=== PATIENT | male | born 1970 | race Caucasian/White ===

== ENCOUNTER 2021-05-22 14:45 | Outpatient (CLI) | payer BC, MEDICARE, SELFPAY ==
--- NOTE | ~2021-05-22 | XR_ITS ---
EXAMINATION: XR shoulder LT min 2V EXAM DATE: 05/22/2021 15:27 INDICATION: M25.512 - No known recent injury provided at this time. Pain of the left shoulder. TECHNIQUE: The following left shoulder projections obtained: frontal projection with internal rotatio n, frontal projection with external rotation, Grashey, and scapular Y view (4+ views). There is no p rior study for comparison. FINDINGS: No evidence of left shoulder rotator cuff calcific tendinosis. There is moderate glenohu meral joint, mild acromioclavicular joint primary osteoarthritis. There are no acute fractures or dis locations identified. There is no subcutaneous gas. The soft tissue is unremarkable. There are no radiopaque foreign bodies. IMPRESSION: Moderate left acromioclavicular, mild glenohumeral osteoarthritis. Reviewed, dictated and finalized at location A. ENT NURSE
== END 2021-05-22 14:46 | disposition home or self-care (01) ==
LOC: ANHIMG 15:05
PROVIDERS: PCP Internal Medicine; Visit Provider Physician Assistant
DX: M19.012 Primary osteoarthritis, left shoulder (principal)
CPT/HCPCS: 73030

== ENCOUNTER 2022-04-12 13:00 | Outpatient (NON) | payer BC, SELFPAY | END 2022-04-12 13:01 | disposition home or self-care (01) | PROVIDERS: PCP Internal Medicine; Visit Provider Surgery Plastic and Reconstructive Surgery | DX: D22.5 Melanocytic nevi of trunk (principal) | CPT/HCPCS: 88305 ==

== ENCOUNTER 2022-05-04 01:10 | Day surgery (SDC) | payer BC, SELFPAY ==
[2022-04-24 13:51] VITALS: BMI 32.3
--- NOTE | 2022-05-03 15:56 | WPDANESEPPF ---
Anes - Initial Pre Proc Eval Procedure: Operation Date: 05/04/22 08:30 Proposed Procedures p Screening Colonoscopy - Ryan Caceres MD Date/Time: 05/03/22 15:56 Surgeon: Ryan Caceres MD Pre Op Diagnosis: neoplasm screening Patient Data Age: 52 Gender: M Height: 1.78 m Weight: 102.3 kg Allergies Allergy/AdvReac Type Severity Reaction Status Date / Time amlodipine Allergy Intermediate legs Verified 05/04/22 07:15 swelled azithromycin Allergy Intermediate Hives Verified 05/04/22 07:15 Home Medications Medication Instructions Recorded Confirmed Type aspirin 81 mg tablet,delayed 81 mg PO DAILY 07/17/19 04/24/22 History release (Adult Low Dose Aspirin) atorvastatin 20 mg tablet 20 mg PO DAILY 07/17/19 04/24/22 History carvedilol 12.5 mg tablet 12.5 mg PO Q12H 07/17/19 04/24/22 History cholecalciferol (vitamin D3) 50 50 mcg PO DAILY 07/17/19 04/24/22 History mcg (2,000 unit) capsule mycophenolate sodium 360 mg 360 mg PO BID 07/17/19 04/24/22 History tablet,delayed release (Myfortic) prednisone 5 mg tablet 5 mg PO DAILY 07/17/19 04/24/22 History sildenafil 100 mg tablet 100 mg PO DAILY PRN sexual 03/31/21 04/24/22 Rx activity #24 tabs metformin 500 mg tablet 500 mg PO BID 12/04/21 04/24/22 History lisinopril 5 mg tablet 5 mg PO DAILY 02/05/22 04/24/22 History tacrolimus 1 mg tablet,extended 2 mg PO DAILY 02/05/22 04/24/22 History release 24 hr (Envarsus XR) Patient hx anesthesia problems: none Family hx anesthesia problems: none Results Review: All pre-operative results and documents have been reviewed as part of the pre-operative evaluation. [facility] Past Medical History Medical History (Updated 05/04/22 @ 08:08 by Prashant Medina DO) Erectile dysfunction Essential (primary) hypertension Gout, unspecified Hyperglycemia Hyperlipidemia Obesity (BMI 30.0-34.9) Surgical History Surgical History S/P kidney transplant Family History Family History Sibling Patient's sister is in good health Patient's brother is in good health Mother Patient's mother is Father Patient's father is Family history of heart disease in male family member before age 55 Social History Social History Years smoked: 30 Smoking status: Former smoker Tobacco type: cigarettes Second hand tobacco smoke exposure: No Alcohol intake: current Drinks per week: 4 Alcohol use details: social Substance use type: does not use Living arrangements: with family Spiritual care concerns: No Anes - Eval Final PreProcedure Day of Procedure 05/03/22 15:56 Patient weight: obese Heart: regular rate and rhythm Lungs: clear to auscultation Airway: Mallampati scale class II Neurological: alert and oriented Last oral intake: >/= 8 hours ASA classification: III Emergent: no Anesthetic plan: proceed Anesthesia type and monitoring: general GIVS and standard monitoring Results Review: All pre-operative results and documents have been reviewed as part of the pre-operative evaluation. Informed Consent: The patient's anesthetic plan and its attendant risks and benefits were discussed with the patient/family/POA. Questions were solicited and answers provided to the satisfaction of the patient/family/POA.
[2022-05-04 07:16] VITALS: BP 128/78; PULSE 62; RESP 18; TEMP 36.3; O2SAT 100
[2022-05-04] MEDS: LACTATED RINGERS 1,000 ML 150 ML IV CONT (07:32)
[2022-05-04 07:33] LABS: Glucose Point of Care 127 mg/dl (65-105)
--- NOTE | 2022-05-04 08:12 | PM.HPGS ---
History of Present Illness History of Present Illness Consent: Risks, benefits, and alternatives have been discussed and questions answered. Patient agrees to proceed with procedure. Chief complaint: neoplasm screening Narrative: Ravindra Diego is a 52 year old male here for first screening colonoscopy Review of Systems Constitutional: Constitutional: Denies headache(s) and Denies weakness Eyes: Eyes: Denies blurry vision ENT: Reports Normal hearing present, Denies headache(s) and Denies neck pain Cardiovascular: Cardiovascular: Denies chest pain and Denies dyspnea Respiratory: Respiratory: Denies dyspnea Gastrointestinal: Gastrointestinal: Reports no additional gastrointestinal complaints Genitourinary: Genitourinary: Denies dysuria Musculoskeletal: Musculoskeletal: Denies neck pain Integumentary/Breasts: Skin/Breast: Denies dry skin Neurologic: Reports Normal hearing present, Denies headache(s) and Denies weakness Psychiatric: Psychiatric: Denies anxiety Endocrine: Endocrine: Denies change in body appearance Hematologic/Lymphatic: Hematologic/Lymphatic: Denies easy bleeding Allergic/Immunologic: Allergic/Immunologic: Denies urticaria [facility] Past Medical History Medical History (Updated 05/04/22 @ 08:13 by Ryan Caceres MD) Colon cancer screening Erectile dysfunction Essential (primary) hypertension Gout, unspecified Hyperglycemia Hyperlipidemia Obesity (BMI 30.0-34.9) Surgical History Surgical History S/P kidney transplant Family History Family History Sibling Patient's sister is in good health Patient's brother is in good health Mother Patient's mother is Father Patient's father is Family history of heart disease in male family member before age 55 Social History Social History Years smoked: 30 Smoking status: Former smoker Tobacco type: cigarettes Second hand tobacco smoke exposure: No Alcohol intake: current Drinks per week: 4 Alcohol use details: social Substance use type: does not use Living arrangements: with family Spiritual care concerns: No Meds Home Medications and Allergies Home Medications Medication Instructions Recorded Confirmed Type aspirin 81 mg tablet,delayed 81 mg PO DAILY 07/17/19 04/24/22 History release (Adult Low Dose Aspirin) atorvastatin 20 mg tablet 20 mg PO DAILY 07/17/19 04/24/22 History carvedilol 12.5 mg tablet 12.5 mg PO Q12H 07/17/19 04/24/22 History cholecalciferol (vitamin D3) 50 50 mcg PO DAILY 07/17/19 04/24/22 History mcg (2,000 unit) capsule mycophenolate sodium 360 mg 360 mg PO BID 07/17/19 04/24/22 History tablet,delayed release (Myfortic) prednisone 5 mg tablet 5 mg PO DAILY 07/17/19 04/24/22 History sildenafil 100 mg tablet 100 mg PO DAILY PRN sexual 03/31/21 04/24/22 Rx activity #24 tabs metformin 500 mg tablet 500 mg PO BID 12/04/21 04/24/22 History lisinopril 5 mg tablet 5 mg PO DAILY 02/05/22 04/24/22 History tacrolimus 1 mg tablet,extended 2 mg PO DAILY 02/05/22 04/24/22 History release 24 hr (Envarsus XR) Allergies Allergy/AdvReac Type Severity Reaction Status Date / Time amlodipine Allergy Intermediate legs Verified 05/04/22 07:15 swelled azithromycin Allergy Intermediate Hives Verified 05/04/22 07:15 Vital Signs Vital Signs - 24 hr 05/04/22 07:16 Temperature 97.4 F L Pulse Rate 62 Respiratory Rate 18 Blood Pressure 128/78 Pulse Oximetry 100 Oxygen Delivery Room Air Exam Const: General: comfortable and no acute distress HENMT: Face/Nose/Sinus: Normal nares present Eyes: General: appearance normal, both eyes and all related structures Neck: Neck: no JVD Resp: Auscultation: clear to auscultation bilaterally Cardio: Rate: regular rate R
[2022-05-04 08:35] VITALS: BP 97/66; PULSE 67; RESP 20; O2SAT 99
[2022-05-04 08:45] VITALS: BP 112/72; PULSE 57; RESP 17; O2SAT 100
[2022-05-04 08:55] VITALS: BP 127/83; PULSE 58; RESP 18; O2SAT 100
== END 2022-05-04 09:07 | disposition home or self-care (01) ==
PROVIDERS: PCP Internal Medicine; Visit Provider Internal Medicine Gastroenterology
PROC: 0DJD8ZZ Inspection of Lower Intestinal Tract, Via Natural or Artificial Opening Endoscopic (ICD-10-PCS; CPT 45378; principal; 2022-05-04 08:30)
DX: Z12.11 Encounter for screening for malignant neoplasm of colon (principal); D12.3 Benign neoplasm of transverse colon; D12.4 Benign neoplasm of descending colon; K64.8 Other hemorrhoids; I10 Essential (primary) hypertension; E78.5 Hyperlipidemia, unspecified; M10.9 Gout, unspecified; E66.9 Obesity, unspecified; Z68.32 Body mass index [BMI] 32.0-32.9, adult; Z94.0 Kidney transplant status; Z87.891 Personal history of nicotine dependence; Z79.82 Long term (current) use of aspirin; Z79.84 Long term (current) use of oral hypoglycemic drugs
CPT/HCPCS: 45380; 45385; 82948; 88305; J2704; J7120

== ENCOUNTER 2022-12-10 10:26 | Outpatient (NON) | payer BC, SELFPAY | END 2022-12-10 10:27 | disposition home or self-care (01) | PROVIDERS: PCP Internal Medicine; Visit Provider Nurse Practitioner | DX: D49.2 Neoplasm of unspecified behavior of bone, soft tissue, and skin (principal) | CPT/HCPCS: 88305 ==

== ENCOUNTER 2023-02-12 14:23 | Outpatient (NON) | payer BC, SELFPAY | END 2023-02-12 14:24 | disposition home or self-care (01) | LOC: ANHLAB 02-13 14:25 | PROVIDERS: PCP Internal Medicine; Visit Provider Nurse Practitioner | DX: D22.9 Melanocytic nevi, unspecified (principal) | CPT/HCPCS: 88305 ==

== ENCOUNTER 2023-03-12 07:00 | Outpatient (NON) | payer BC, SELFPAY | END 2023-03-12 07:01 | disposition home or self-care (01) | LOC: ANHLAB 03-13 12:44 | PROVIDERS: PCP Internal Medicine; Visit Provider Nurse Practitioner | DX: L72.0 Epidermal cyst (principal) | CPT/HCPCS: 88305 ==

== ENCOUNTER 2025-04-30 00:50 | Day surgery (SDC) | payer OTHER, SELFPAY ==
[2025-04-19 12:07] VITALS: BMI 32.4
--- OUTSIDE RECORDS SUMMARY | 2025-04-30 00:53 | XMS_ITS | Encounter Summary ---
Author Organization [facility] Address [address] [facility] [address] [place] [address] Phone Care Team Providers Care Lockstitch Topstitcher Name Role Phone Daniel Saunders MD Unavailable [phone] Shashi Davis MD Primary Care Provider [phone] Anastasia Savage RN Unavailable [phone] Daisy Carter RN Unavailable [phone] Johnson Dawson Unavailable [phone] Araseli Farris NP Primary Care Provider [phone] Araseli Farris NP Primary Care Provider [phone] Miriam Hernandez TRAFFIC INVESTIGATOR Unavailable [phone] Encounter Details Date Type Department Care Team (Late st Contact Info) Description 07/10/2021 Telephone [facility] Medicine Nephrology [address] [facility] 5th [place] [address] [place] [id number] Ryan Marie CMA Social History Tobacco Use Types Packs/Day Years Used Date Smoking Tobacco: Never Smokeless Tobacco: Former Alcohol Use Standard Drinks/Week Comments Yes 0 (1 standard drink = 0.6 oz pur e alcohol) social Sex and Gender Information Value Date Recorded Sex Assigned at Not on file Legal Sex Male 5:12 AM PHOTOGRAMMETRIC COMPILATION SPECIALIST Gender Identity Male 01/17/2019 10:31 AM CDT Sexual Orientation Straight 07/02/2021 7: 47 PM PHOTOGRAMMETRIC COMPILATION SPECIALIST documented as of this encounter Plan of Treatment Not on file documented as of this encounter Visit Diagnoses Not on filedocumented in this encounter Additional Health Concerns Infection Onset Date Last Indicated Resolved Time COVID: Suspected 03/25/2022 03/25/2022 03/25/2022 3:06 PM CDT COVID: Suspected 03/23/2023 03/23/2023 03/23/2023 7:41 PM CDT documented as of this encounter Care Teams Lockstitch Topstitcher Relationship Specialty Start Date End Date Shashi Davis MD [address] [facility] [address] [place], [place] [id number] PCP - General Internal Medicine 04/03/18 05/06/24 Araseli Farris NP [address] [place] [address] [facility] [address] [address] PCP - General Family Medicine 05/07/24 11/24/24 Araseli Farris NP [address] [facility] [address] [place] [address] PCP - General Family Medicine 11/25/24 Daniel Saunders MD Referring Physician Nephrology 04/03/18 Anastasia Savage RN [address] [id number] Mechanical Designer Mechanical Designer 06/28/20 Daisy Carter RN [address] [address] Secondary Kidney Coordinator Transplant 06/30/20 Johnson Dawson PA [address] [place] [address] [facility] [address] [address] Physician Metal Engraver Orthopedic Surgery 02/28/22 Miriam Hernandez NP [address] [address] Nurse Practitioner Gastroenterology 03/10/25 documented as of this encounter
--- OUTSIDE RECORDS SUMMARY | 2025-04-30 00:54 | XMS_ITS | Clinical Summary ---
Author Organization [facility] [employer] Address [address] [facility] [place] [address] Care Team Providers Care Ceramic Engineer Name Role Phone Shashi Davis Primary Care Provider [phone] Source Comments [facility],non-owned Affiliates and Associated Physician Practices is amultiple site organization consisting of ambulatory clinics and hospital sitesin [place], [place], [place] and [place]. This disclosure is being madepursuant to the Care Everywhere program and may not contain all information available regarding this patient. Last updated 18.[facility] [employer] Allergies Active Allergy Reactions Criticality Noted Date Comments Azithromycin Urticaria Medium 04/05/2019 Amlodipine Base Urticaria Medium 04/05/2019 Medications * Be aware that medications may not be up to date on this document. Alwaysverify current medications with the patient. carvedilol (COREG) 25 MG tablet Take 12.5 mg by mouth 2 times daily 3 01/30/2019 Active sulfamethoxazole -trimethoprim (BACTRIM DS; SEPTRA DS) 800-160 MG tablet Take 1 tablet by mouth once daily Mon-Wed-Fri 3 01/30/2019 Active valGANciclovir (VALCYTE) 450 MG tablet Take 900 mg by mouth once daily 8 02/25/2019 Active TACROLIMUS PO Active Social History Tobacco Use Types Packs/Day Years Used Date Smoking Tobacco: Never Smokeless Tobacco: Never Sex and Gender Information Value Date Recorded Sex Assigned at Not on file Legal Sex Male 10:06 AM CDT Gender Identity Not on file Sexual Orientation Not on file Last Filed Vital Signs Vital Sign Reading Time Taken Comments Blood Pressure 132/86 04/05/2019 3:37 PM CDT Pulse 76 04/05/2019 3:37 PM CDT Temperature 36.9 C (98.4 F) 04/05/2019 3:37 PM CDT Respiratory Rate 16 04/05/2019 3:37 PM CDT Oxygen Saturation 98% 04/05/2019 3:37 PM CDT Inhaled Oxygen Concentration - - Weight 108 kg (238 lb) 04/05/2019 3:37 PM CDT Height 177.8 cm (5' 10) 04/05/2019 3:37 PM CDT Body Mass Index 34.15 04/05/2019 3:37 PM CDT Plan of Treatment Health Maintenance Due Date Last Done Comments COLOGUARD (AGES 45-75) - COLON CA SCREENING 1971 COLON MONITORING 1971 COLONOSCOPY - COLON CA SCREENING 1971 CT COLONOGRAPHY - COLON CA SCREENING 1971 Colorectal Cancer Screening 1971 FIT - COLON CA SCREENING 1971 FLEX SIG - COLON CA SCREENING 1971 LIPID TESTING 1971 HIV SCREENING 1986 HEPATITIS C SCREENING 01/19/1989 DTAP/TDAP/TD VACCINES (1 - Tdap) 1990 HEPATITIS B VACCINE (1 of 3 - 19+ 3-dose series) 1990 PNEUMOCOCCAL VACCINE 50+ (1 of 2 - PCV) 1990 ZOSTER VACCINE (1 of 2) 1990 SCREENING FOR DIABETES 04/05/2019 DEPRESSION SCREENING 06/17/2024 COVID-19 VACCINE ( season) 2025 10/17/2021, 08/15/2020, 07/18/2020 INFLUENZA VACCINE (#1) 2025 , 03/23/2018, 03/24/2017, Additional history exists HIB VACCINE Aged Out No longer eligi ble based on patient's age to complete this topic HPV VACCINE Aged Out No longer eligi ble based on patient's age to complete this topic MENINGOCOCCAL (Group B) VACCINE SHARED DECISION-MAKING Aged Out No longer eligible based on patient's age to complete this topic MENINGOCOCCAL GROUPS A/C/Y/W VACCINE Aged Out No longer eligible based on patient's age to complete this topic Insurance [employer] [place]BS[facility] [place] [facility] [place] Care Teams Ceramic Engineer Relationship Specialty Start Date End Date Shashi Davis DO [address] [facility] [address] [place] [address] PCP - General 04/26/22
--- OUTSIDE RECORDS SUMMARY | 2025-04-30 00:54 | XMS_ITS | Clinical Summary ---
Author Organization [facility] Address [address] [place] [address] Care Team Providers Care Behavior Interventionist Name Role Phone Daniel Saunders MD Unavailable [phone] Anastasia Savage RN Unavailable [phone] Daisy Carter RN Unavailable [phone] Johnson Dawson Unavailable [phone] Araseli Farris NP Primary Care Provider [phone] Miriam Hernandez NP Unavailable [phone] Allergies Active Allergy Reactions Criticality Noted Date Comments Azithromycin Hives,Urticaria Medium 07/10/2018 Amlodipine Swelling Medium 07/10/2018 Swelling of legs Medications ascorbic acid (VITAMIN C) 500 mg tablet,chewabl e Take 1 tablet/chew tab (500 mg total) by mouth 2 (two) times a day To be taken the first 5 days of each month. 180 tablet/chew tab 3 06/18/19 24 Active cholecalcifero l (VITAMIN D-3) 2000 unit capsuleIndicat ions:Kidney replaced by transplant Take 1 capsule (2,000 Units total) by mouth daily 90 capsule 3 06/18/19 24 Active carvediloL (COREG) 6.25 mg tablet TAKE 1 TABLET BY MOUTH TWICE DAILY 180 tablet 3 05/04/20 24 Active predniSONE (DELTASONE) 5 mg tabletIndicati ons:Kidney replaced by transplant TAKE 1 TABLET BY MOUTH DAILY 90 tablet 3 05/04/20 24 Active lisinopriL (PRINIVIL,ZEST RIL) 5 mg tablet TAKE 1 TABLET BY MOUTH DAILY 90 tablet 3 05/04/20 24 Active ketoconazole (NIZORAL) 2 % cream APPLY DAILY TO RASH AT AT BEDTIME 02/25/[address] (MYFORTIC) 360 mg EC tabletIndicati ons:Kidney replaced by transplant TAKE 1 TABLET BY MOUTH TWICE DAILY 180 tablet 3 07/09/19 25 Active aspirin 81 mg enteric coated tablet TAKE 1 TABLET BY MOUTH DAILY 90 tablet 3 09/22/19 25 Active methenamine (HIPREX) 1 gram tablet TAKE 1 TABLET BY MOUTH TWICE DAILY WITH MEALS TO BE TAKEN THE FIRST 5 DAYS OF EACH MONTH 30 tablet 3 09/22/19 25 Active tacrolimus XR (Envarsus XR) 1 mg tablet extended release 24 hr Take 1 tablet (1 mg total) by mouth daily To be taken with TWO 0.75mg tabs- total dose 2.5mg daily 90 tablet 3 11/18/19 25 026 Active tacrolimus XR (ENVARSUS XR) 0.75 mg tablet extended release 24 hrIndications: Prevention of Kidney Transplant Rejection Take 2 tablets (1.5 mg total) by mouth daily To be taken with ONE 1mg tabs- total dose 2.5mg daily 180 tablet 3 11/18/19 25 026 Active sildenafiL (VIAGRA) 100 mg tablet Take 1 tablet (100 mg total) by mouth as needed for erectile dysfunction 10 tablet 3 03/01/20 25 Active atorvastatin (LIPITOR) 20 mg tabletIndicati ons:Kidney replaced by transplant TAKE 1 TABLET BY MOUTH DAILY 90 tablet 3 04/12/20 25 Active metFORMIN (GLUCOPHAGE) 500 mg tablet TAKE 1 TABLET BY MOUTH TWICE DAILY WITH MEALS 180 tablet 3 04/22/20 25 Active atorvastatin (LIPITOR) 20 mg tabletIndicati ons:Kidney replaced by transplant TAKE 1 TABLET BY MOUTH DAILY 90 tablet 3 05/04/20 24 025 Discontinued metFORMIN (GLUCOPHAGE) 500 mg tablet TAKE 1 TABLET BY MOUTH TWICE DAILY WITH MEALS 180 tablet 3 06/29/19 25 025 Discontinued Active Problems Patient Care Coordination No te Formatting of this note migh t be different from the original. Discharge Preferences: Home Health: [facility] Local Pharmacy:[facility] Specialty [facility]: [facility] [place] LAB: Q-MONTHLY, FK; Q-3 ROUTINE (Exp 07/25/25) Problem Noted Date Diagnosed Date Anemia in chronic renal disease 02/02/2025 Iron deficiency anemia, unspecified 02/02/2025 Annual physical exam 05/10/2024 Assessment & Plan (11/05/2024 3:10 PM CDT): -Recommended: Healthy diet. Avoiding junk food/fast food. -30 minutes of exercise most days of the week. Increase to 45 minutes for weight loss. Health Maintenance reviewed - labs ordered today. -Influenza vaccine every year Recommend: - Topic Date Due Pneumococcal vaccine <65 (3 of 3 - PPSV23, PCV20 or PCV21) 01/03/2024 -F/u in 1 year for Annual PE or sooner if needed Assessment & Plan (05/10/2024 10:37 AM AERONAUTICAL PROJECT ENGINEER): I have reviewed patient's history, family history, current med list and plan of care. Rx refills given. Discussed relevant follow up testing and specialty follow-up needed. No referrals needed. Reviewed labs per transplant, will add hga1c, PSA and TSH Prediabetes 05/10/2024 Assessment & Plan (11/09/2024 9:36 PM CDT): Continues on metformin 500mg daily. Last hga1c is 6.4%. orders for repeat lab work Assessment & Plan (05/10/2024 10:38 AM AERONAUTICAL PROJECT ENGINEER): Stable. On metformin 500mg bid per transplant team. Will check hga1c Other male erectile dysfunction 07/10/2019 Kidney transplant recipient 01/14/2019 Overview (05/10/2024): Living donor from friend: 2019 - follows with [facility] transplant team Assessment & Plan (05/10/2024 10:36 AM AERONAUTICAL PROJECT ENGINEER): Per transplant notes: 1. 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 Status post a living unrelated kidney transplant 01/13/2019 from a friend. Door creatinine clearance 84 mL/min and BMI 29. It will be a ABO O into A, HLA mismatch 1A, 1B, 1 DR mismatch, CMV positive into negative, recipient EBV positive. cPRA 10. PRA I 0/ PRA II 0. The surgeon was Dr. Miramontes. UNOS #[id number] He did have a ureteral stent. He received TMG 3mg/kg (100mg/225mg). D/C cr was 1.6. Baseline has been 1.8-2.1 Plan: doing well. Transplant team has been treating for htn, hld and monitoring hga1c. Assessment & Plan (01/16/2019 6:05 AM CDT): Creatinine trending down to 1.28 from 1.3 Assessment & Plan (01/15/2019 6:39 AM CDT): Creatinine trending down from 2 to 1.3. Assessment & Plan (01/14/2019 8:39 AM CDT): Creatinine trending down from 3.85 to 2. Made 10 liters of urine output High risk medications (not anticoagulants) long- term use 01/14/2019 Assessment & Plan (01/16/2019 6:05 AM CDT): Received Thymo 100 mg in OR and 225 mg yesterday for total 3 mg/kg. Continue Myfortic 720 mg bid, prednisone 20 mg daily We increased Envarsus to 9 mg yesterday. Today's trough pending Assessment & Plan (01/15/2019 6:40 AM CDT): Received Thymo 100 mg in OR and 225 mg yesterday for total 3 mg/kg. Continue Myfortic 720 mg bid, prednisone 80 mg daily and down to 20 mg tomorrow. Continue Envarsus 8 mg daily . Today's trough pending Assessment & Plan (01/14/2019 8:40 AM CDT): Received Thymo 100 mg in OR. Recommend 225 mg today for total 3 mg/kg. Continue Myfortic 720 mg bid, prednisone 80 mg daily and start Envarsus 8 mg daily. Immunosuppression 12/30/2018 Increased infection risk sta tus post immunosuppressive therapy 12/30/2018 Essential hypertension 07/14/2018 Assessment & Plan (11/09/2024 9:35 PM CDT): Transplant is managing medication. Blood pressure is well controlled. Contineus on lisionpril, carvedilol, Assessment & Plan (05/10/2024 10:37 AM AERONAUTICAL PROJECT ENGINEER): Stable. Well controlled. Treated per transplant team. Continues on lisinopril 5mg, carvedilol 6.25 bid Assessment & Plan (01/16/2019 6:04 AM CDT): Increase carvedilol to 25 mg bid and add hydralazine 25 mg bid for Bps of 180s. Assessment & Plan (01/15/2019 6:23 AM CDT): Carvedilol 6.25 mg bid started yesterday for Bps of 160s. Will monitor and adjust as needed Assessment & Plan (01/14/2019 8:42 AM CDT): BP okay. If elevates, restart metoprolol XL 50 mg daily History of primary IgA nephropathy 07/14/2018 Hyperparathyroidism, secondary renal 07/14/2018 Mixed hyperlipidemia 09/26/2015 Assessment & Plan (11/09/2024 9:36 PM CDT): Treated per transplant. Stables. On atorvastatin 20mg. Orders for labs given. Assessment & Plan (05/10/2024 10:38 AM AERONAUTICAL PROJECT ENGINEER): Treated per transplant. Stable. Lab Results Component Value Date LDLCALC 66 12/28/2022 At goal. Continue lipitor 20mg daily History of nephrotic syndrome 12/04/2011 Resolved Problems Problem Noted Date Diagnosed Date Resolved Date Gram-negative bacteremia 03/27/2022 Acute cystitis without hematuria 03/25/2022 05/10/2024 Immunocompromised 03/15/2022 05/10/2024 Full thickness tear of left subscapularis tendon 02/02/2022 05/10/2024 Overview (02/02/2022): Added automatically from request for surgery [id number] Arthritis of left acromioclavicular joint 02/02/2022 05/10/2024 Overview (02/02/2022): Added automatically from request for surgery [id number] Biceps tendonitis, left 02/02/202204/18 Overview (02/02/2022): Added automatically from request for surgery [id number] Impingement syndrome of left shoulder 02/02/2022 05/10/2024 Overview (02/02/2022): Added automatically from request for surgery [id number] COVID-19 06/21/2021 05/10/2024 Impaired fasting blood sugar 07/10/2019 05/10/2024 Hyperkalemia 02/03/2019 05/10/2024 Encounter for long-term (cur rent) use of antibiotics 01/14/2019 05/10/2024 Assessment & Plan (01/16/2019 6:07 AM CDT): Start Valcyte 450 mg daily on discharge. Continue fluconazole 200 mg weekly and Bactrim DS daily Assessment & Plan (01/15/2019 6:22 AM CDT): Recommend Valcyte 450 mg daily on discharge or 900 mg daily if GFR > 60 as he is high risk. Continue fluconazole 200 mg weekly and Bactrim DS daily Assessment & Plan (01/14/2019 8:43 AM CDT): Recommend Valcyte 450 mg daily on discharge or 900 mg daily if GFR > 60 as he is high risk. 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 09/26/2015 05/10/2024 Encounters Date Type Department Care Team Description 03/06/2025 Orders Only [facility] [address] [facility] 5th [place] [address] [place] [address] Dylon Simeon MD 03/05/2025 Orders Only [facility] Transplant Kidney [address] [facility] [id number] [place] [address] Anastasia Savage RN Kidney replaced by transplant (Primary Dx); Low serum iron 03/04/2025 2:00 PM CDT Infusion [address] [place] [phone] Anemia in chronic kidney disease, unspecified CKD stage (Primary Dx); Kidney transplant recipient; Other iron deficiency anemia 03/03/2025 Telephone [facility] Transplant Kidney [address] [facility] [address] [id number] [place] [address] Anastasia Savage RN 02/25/2025 2:00 PM CDT Infusion [address] [place] [phone] Anemia in chronic kidney disease, unspecified CKD stage (Primary Dx); Kidney transplant recipient; Other iron deficiency anemia 02/18/2025 2:[address] [facility] [address] [facility] [address] [place] [address] Yarely Collins RN Anemia in chronic kidney disease, unspecified CKD stage (Primary Dx); Kidney transplant recipient; Other iron deficiency anemia 02/03/[address] [facility] [address] [facility] [address] [place] [address] Yarely Collins RN 02/03/[address] [place] [address] Yarely Collins RN 02/02/[address] [place] [address] Linh Liu RN 02/02/2025 Orders Only [address] [place] [address] Ruperto Koroma MD 02/02/2025 Telephone [facility] Transplant Kidney [address] [facility] [address] [phone] [place] [address] Anastasia Savage RN 01/29/2025 Telephone [facility] Transplant Kidney [address] [facility] [address] [id number] [place] [address] Anastasia Savage, DENISSE from Last 3 Months Immunizations Immunization Administration Dates Next Due COVID-19 mRNA (GlamBox) 0.3 m L (30 mcg) vaccine (12 years and up) 02/16/2024 Influenza, Quadrivalent, Yazmin l Culture-based MDCK, Preservative Free, Antibiotic Free, Intramuscular 02/23/2023 Influenza, Quadrivalent, Spl it, Intramuscular 03/23/2018,03/24/2017 Influenza, Quadrivalent, Spl it, Preservative Free, Intramuscular 03/07/2022,02/25/2021,02/26/2020 Influenza, Trivalent, Cell Culture-based MDCK, Preservative Free, Antibiotic Free, Intramuscular 02/16/2024 Influenza, Trivalent, IM (MDV) 06/23/2014,2012 Influenza, Unspecified 02/20/2025 Moderna SARS-CoV-2 Monovalen t Vaccination (12+ YRS) 10/28/2021,10/17/2021,08/15/2020,07/18 Pfizer SARS-CoV-2 Monovalent Vaccination (12+ Yrs) PURPLE 02/20/2025 Pneumococcal Conjugate PCV 13 07/10/2018 Pneumococcal Polysaccharide PPV23 01/02/2019 Tdap 10/05/2024 ZOSTER Recombinant 02/20/2025 Surgical History Surgery Date Site/Laterality Comments HERNIA REPAIR 06/17/2014 - 06/16/2015 KIDNEY TRANSPLANT 06/17/2018 - 06/16/2019 Right VASECTOMY ORGAN TRANSPLANT December 2018 Medical History Medical History Date Comments Hypertension December 2000 Hyperlipemia ESRD (end stage renal disease) End stage renal disease 11/26/2018 Added au tomatically from request for surgery [id number] Impingement syndrome of left shoulder 02/02/2022 Added automatically from request for surgery [id number] Stage 5 chronic kidney disea se not on chronic dialysis (HCC) 07/14/2018 Autoimmune disease Mar 2003 Family History Medical History Relation Name Comments Heart attack Father [place]reet [place]go Heart attack Mother [place] Heart disease Other Kidney disease Other Relation Name Status Comments Father Preet [place]go Mother [place] vick Other Social History Tobacco Use Types Packs/Day Years Used Date Smoking Tobacco: Never Smokeless Tobacco: Former Tobacco Cessation:Counseling Given: Not Answered Alcohol Use Standard Drinks/Week Comments Yes 0 (1 standard drink = 0.6 oz pur e alcohol) social AUDIT-C Answer Date Recorded Q1: How often do you have a drink containing alc ohol? Monthly or less 02/28/2022 Q2: How many drinks containi ng alcohol do you have on a typical day when you are drinking? 1 or 2 02/28/2022 Frequency of Binge Drinking Not on file 02/15 PHQ-2 Answer Date Recorded PHQ-2 Total Score (If total score is 3 or more points, staff should administer the PHQ-9) 0 11/05/2024 Sex and Gender Information Value Date Recorded Sex Assigned at Not on file Legal Sex Male 5:12 AM AERONAUTICAL PROJECT ENGINEER Gender Identity Male 01/17/2019 10:31 AM CDT Sexual Orientation Straight 07/02/2021 7: 47 PM AERONAUTICAL PROJECT ENGINEER Last Filed Vital Signs Vital Sign Reading Time Taken Comments Blood Pressure 128/71 03/04/2025 1:24 PM CDT Pulse 77 03/04/2025 1:24 PM CDT Temperature 36.5 C (97.7 F) 03/04/2025 1:24 PM CDT Respiratory Rate 20 03/04/2025 1:24 PM CDT Oxygen Saturation 96% 03/04/2025 1:24 PM CDT Inhaled Oxygen Concentration - - Weight 103.9 kg (229 lb) 01/27/2025 9:15 AM CDT Height 177.8 cm (5' 10) 11/05/2024 2:52 PM CDT Body Mass Index 32.86 11/05/2024 2:52 PM CDT Plan of Treatment Health Maintenance Due Date Last Done Comments Pneumococcal vaccine <65 (3 of 3 - PCV20 or PCV21) 01/03/2024 01/02/2019, 07/10/2018 Covid-19 Vaccine (2024- season) 2025 02/20/2025, 02/16/2024, 05/12/2023, Additional history exists Zoster Vaccine (2 of 2) 04/17/2025 02/20/2025 Depression Screening 11/05/2025 11/05/2024, 05/07/20 24 Regular Well Visit/Exam 18-64 11/05/2025 11/05/2024 Prostate Cancer Screening-PSA 11/14/2026 11/14/2024 Colon Cancer Screening-Colonoscopy 05/30/20322021 DTaP/Tdap/Td Vaccine (2 - Td or Tdap) 10/05/2034 10/05/2024 Hepatitis B Screening Completed 12/29/2018 Hepatitis C Screening Completed 12/29/2018, 019 Influenza Vaccine Completed 02/20/2025, , 02/23/2023, Additional history exists Medical Devices Implanted Type Area Exhaust Emissions Automotive Technician Device Identifier Shelf Expiration Date Model / Serial / Lot [employer] Fiberlink Arthrex Suturetape 1.3mm Tape Suture Nonabsorbable Ar-7535 - [id number] Implanted:Qty: 2 on 02/28/2022 by Karan Mcclellan MD at [facility] Left: Shoulder [employer] Inc 03/16/2026 AR-7535 / / [id number] [employer] Swivelock C 4.75mm 19.1mm Closed Eyelet Vent [place] Suture Ar-[id number] - [id number] Implanted:Qty: 1 on 02/28/2022 by Karan Mcclellan MD at [facility] Left: Shoulder [employer] Inc 12/14/2025 [id number] / / [id number] Explanted Type Area Exhaust Emissions Automotive Technician Device Identifier Shelf Expiration Date Model / Serial / Lot Nely ek [id number]-J 6fr 20cm 100cm 1 Step Insert Push Catheter [place] Suture - [id number] Implanted:Qty : 1 on 01/13/2019 by Pilo Miramontes MD PhD at [facility] Explanted:Qty : 1 on 02/09/2019 by Andria Wilson NP Stent Right: Ureter [employer] [id number] 03/31/2023 [id number] / [id number] / [id number] Description:Transplanted ure ter Procedures Procedure Name Priority Date/Time Associated Diagnosis Comments COPY(IES) SENT TO: Routine 03/06/2025 10 :06 AM CDT IRON PROFILE W/ IBC Routine 03/06/2025 1 0:06 AM CDT Kidney replaced by transplant Low serum iron TACROLIMUS, HIGHLY SENSITIVE, LC/MS/MS Routine 03/06/2025 10:05 AM CDT CBC MORPHOLOGY Routine 03/06/2025 10:05 AM CDT CBC WITH AUTO DIFFERENTIAL Routine 03/06/2025 10:05 AM CDT RENAL FUNCTION PANEL Routine 03/06/2025 10:05 AM CDT COPY(IES) SENT TO: Routine 03/06/2025 10 :05 AM CDT PSA SCREEN Routine 11/14/2024 8:38 AM CDT Screening PSA (prostate specific antigen) HEPATITIS C ANTIBODY Routine 12/29/2018 11:25 AM CDT End stage renal disease (HCC) from Last 3 Months or Most Recently Relevant to Health Maintenance Results * COPY(IES) SENT TO: (03/06/2025 10:06 AM CDT) COPY(IES) SENT TO: [facility] Comment: [facility] - COPY TO ACCT [address] [place] [address] 03/06/2025 10:0 6 AM CDT 03/06/2025 10:07 AM CDT Narrative [facility] - 03/07/2025 7:07 AM CDT FASTING:YES FASTING: YES Rj Phillips MD LAB BLOOD ORDERABLES Final R esult [facility] * Iron profile w/ IBC (03/06/2025 10:06 AM CDT) Pathologist [facility] Iron 69 50 - 180 mcg/dL [facility] TIBC 346 250 - 425 mcg/dL (calc) [facility] Iron saturation 20 20 - 48 % (calc) [facility] Blood 03/06/2025 10:0 6 AM CDT 03/06/2025 10:07 AM CDT Narrative [facility] - 03/07/2025 7:07 AM CDT FASTING:YES FASTING: YES Rj Phillips MD LAB BLOOD ORDERABLES Final R [facility] Performing Organization Address City/[facility]/ZIP Co de Phone Number [facility] [address] [place] [address] * Tacrolimus, Highly Sensitive, LC/MS/MS (03/06/2025 10:05 AM CDT) Pathologist [facility] Tacrolimus, Highly Sensitive, LC/MS/MS 5.0 mcg/L [facility] Comment: No definitive therapeutic or toxic ranges have been established. Optimal blood drug levels are influenced by type of transplant, patient response, time post- transplant, co-administration of other drugs, and drug formulation. The following trough range is a suggested guideline: 5.0-20.0 mcg/L. 03/06/2025 10:0 5 AM CDT 03/06/2025 10:05 AM CDT Narrative [facility] - 03/08/2025 11:23 AM CDT RAW FASTING:YES FASTING: YES Dylon Simeon MD LAB BLOOD ORDERABLES Final Resu lt Performing Organization Address [facility] de Phone Number [facility] [address] [place] [address] * CBC MORPHOLOGY (03/06/2025 10:05 AM CDT) CBC MORPHOLOGY NORMAL [facility] Comment: Schistocytes 1 + Anisocytosis 2 + Poikilocytosis 1 + Polychromasia 1 + Hypochromasia 2 + Ovalocytes 2 + 03/06/2025 10:0 5 AM CDT 03/06/2025 10:05 AM CDT Narrative [facility] - 03/08/2025 11:23 AM CDT RAW FASTING:YES FASTING: YES Dylon Simeon MD LAB BLOOD ORDERABLES Final Resu lt Performing Organization Address [facility] de Phone Number [facility] [address] [place] [address] * COPY(IES) SENT TO: (03/06/2025 10:05 AM CDT) COPY(IES) SENT TO: [facility] Comment: [facility] - COPY TO ACC [address] [place] [address] 03/06/2025 10:0 5 AM CDT 03/06/2025 10:05 AM CDT Narrative [facility] - 03/08/2025 11:23 AM CDT RAW FASTING:YES FASTING: YES Dylon Simeon MD LAB BLOOD ORDERABLES Final Resu lt Performing Organization Address [facility] Co de Phone Number [facility] * (ABNORMAL) CBC with auto differential (03/06/2025 10:05 AM CDT) WBC 7.3 3.8 - 10.8 Thousand/u L [facility] RBC, POC 4.97 4.20 - 5.80 Million/uL [facility] Hgb 10.5(L) 13.2 - 17.1 g/dL [facility] Hct 36.8(L) 38.5 - 50.0 % [facility] MCV 74.0(L) 80.0 - 100.0 fL [facility] MCH 21.1(L) 27.0 - 33.0 pg [facility] MCHC 28.5(L) 32.0 - 36.0 g/dL [facility] Comment: For adults, a slight decrease in the calculated MCHC value (in the range of 30 to 32 g/dL) is most likely not clinically significant; however, it should be interpreted with caution in correlation with other red cell parameters and the patient's clinical condition. Rdw 24.1(H) 11.0 - 15.0 % [facility] Platelets 261 140 - 400 Thousand/u L [facility] MPV 10.4 7.5 - 12.5 fL [facility] Neutrophils, abs 5,183 1,500 - 7,800 cells/uL [facility] Lymphocytes, abs 1,263 850 - 3,900 cells/uL [facility] Monocyte abs 686 200 - 950 cells/uL [facility] Eosinophils, abs 117 15 - 500 cells/uL [facility] Basophils, abs 51 0 - 200 cells/uL [facility] Neutrophils 71 % [facility] Lymphocyte pct 17.3 % [facility] Monocytes 9.4 % [facility] Eosinophils 1.6 % [facility] Basophils 0.7 % [facility] 03/06/2025 10:0 5 AM CDT 03/06/2025 10:05 AM CDT Narrative [facility] - 03/08/2025 11:23 AM CDT RAW FASTING:YES FASTING: YES us Dylon Simeon MD LAB BLOOD ORDERABLES Final Resu lt [facility] [address] [place] [phone] * (ABNORMAL) Renal function panel (03/06/2025 10:05 AM CDT) Pathologist [facility] Glucose 117(H) 65 - 99 mg/dL [facility] Comment: Fasting reference interval For someone without known diabetes, a glucose value between 100 and 125 mg/dL is consistent with prediabetes and should be confirmed with a follow-up test. BUN 21 7 - 25 mg/dL [facility] Creatinine 1.19 0.70 - 1.30 mg/dL [facility] eGFR 73 > OR = 60 mL/min/1.7 3m2 [facility] BUN/creat ratio SEE NOTE: 6 - 22 (calc) [facility] Comment: Not Reported: BUN and Creatinine are within reference range. Sodium 134(L) 135 - 146 mmol/L [facility] Potassium, pl 4.5 3.5 - 5.3 mmol/L [facility] Chloride 102 98 - 110 mmol/L [facility] CO2 26 20 - 32 mmol/L [facility] Calcium 9.7 8.6 - 10.3 mg/dL [facility] Phosphorus, sr 2.7 2.5 - 4.5 mg/dL [facility] Albumin 4.4 3.6 - 5.1 g/dL [facility] 03/06/2025 10:0 5 AM CDT 03/06/2025 10:05 AM CDT Narrative [facility] - 03/08/2025 11:23 AM CDT RAW FASTING:YES FASTING: YES us Dylon Simeon MD LAB BLOOD ORDERABLES Final Resu lt [facility] [address] [phone] * PSA screen (11/14/2024 8:38 AM CDT) PSA 0.74 < OR = 4.00 ng/mL [facility] Comment: The total PSA value from this assay system is standardized against the WHO standard. The test result will be approximately 20% lower when compared to the equimolar-standardized total PSA (Zuly Cheryl). Comparison of serial PSA results should be interpreted with this fact in mind. This test was performed using the Siemens chemiluminescent method. Values obtained from different assay methods cannot be used interchangeably. PSA levels, regardless of value, should not be interpreted as absolute evidence of the presence or absence of disease. Blood 11/14/2024 8:38 AM CDT 11/14/2024 8:39 AM CDT Narrative [facility] - 11/15/2024 7:31 AM CDT FASTING:YES FASTING: YES Araseli Farris DIRECTOR OF BANDS LAB BLOOD ORDERABLES Final Re sult [facility] [address] [place] [address] * Hepatitis C antibody (12/29/2018 11:25 AM CDT) Hep C Ab Nonreactive Nonreactive HARI OMALLEY Comment: Interpretive Data Positive results should be confirmed by a molecular method. If positive, a second separately collected sample should be submitted for Hepatitis C Virus (HCV) RNA Detection and Quantitation by Real-Time Reverse Emergency Services Professional-PCR (RT-PCR). Current interpretive data was last revised on 2016. Blood specimen (specimen) 12/29/2018 11:25 AM CDT 12/29/2018 1:26 PM CDT Pilo Miramontes MD PhD LAB MICROBIOLOGY - [facility] L ORDERABLES Edited Result - Final HARI OMALLEY [facility] Department [place] [address] from Last 3 Months or Most Recently Relevant to Health Maintenance Insurance [address] [id number] [facility] CHOICE PLUS [address] [place] [facility] CHOICE PLUS TRANSPLANT [employer] LIFESOURCE Advance Directives For more information, please contact: [phone] * Full Code (Latest Code Status on File) Date Activated Date Inactivated Comments 03/25/2022 10:40 PM 03/29/2022 4:23 PM * Full Code Date Activated Date Inactivated Comments 10/03/2021 3:18 AM 10/05/2021 10:55 PM * Full Code Date Activated Date Inactivated Comments 01/13/2019 3:51 PM 01/17/2019 6:33 PM * Full Code Date Activated Date Inactivated Comments 01/13/2019 5:33 AM 01/13/2019 3:51 PM Care Teams Behavior Interventionist Relationship Specialty Start Date End Date Araseli Farris NP [address] [id number] PCP - General Family Medicine 11/25/24 Daniel Saunders MD Referring Physician Nephrology 04/03/18 Anastasia Savage RN [address] [address] University Manager University Manager 06/28/20 Daisy Carter RN [address] [address] Secondary Kidney Coordinator Transplant 06/30/20 [place] Dawson PA [address] [facility] [facility] [address] [place] [address] Physician Mixing Operator Orthopedic Surgery 02/28/22 Miriam Hernandez NP [address] [place] [address] Nurse Practitioner Gastroenterology 03/10/25
--- OUTSIDE RECORDS SUMMARY | 2025-04-30 00:54 | XMS_ITS | Encounter Summary ---
Author Organization [facility] Healthcare Address [address] [place] [address] Care Team Providers Care Coin Box Collector Name Role Phone Daniel Saunders MD Unavailable [phone] Shashi Davis MD Primary Care Provider + [phone] Anastasia Savage RN Unavailable [phone] Daisy Carter RN Unavailable [phone] [place] Unavailable [phone] Araseli Farris NP Primary Care Provider Araseli Farris NP Primary Care Provider [phone] Miriam Hernandez NP Unavailable [phone] Encounter Details Date Type Department Care Team (Late st Contact Info) Description 11/02/2021 Telephone [facility] Primary Care Medicine Clinic [address] [facility] [address] [place] [address] Buddy Rodriguez MD [address] [facility] [address] [place] [address] Social History Tobacco Use Types Packs/Day Years Used Date Smoking Tobacco: Never Smokeless Tobacco: Former Alcohol Use Standard Drinks/Week Comments Yes 0 (1 standard drink = 0.6 oz pur e alcohol) social AUDIT-C Answer Date Recorded Q1: How often do you have a drink containing alc ohol? 2-4 times a month 10/03/2021 Q2: How many drinks containi ng alcohol do you have on a typical day when you are drinking? 1 or 2 10/03/2021 Q3: How often do you have si x or more drinks on one occasion? Never 10/03/2021 Sex and Gender Information Value Date Recorded Sex Assigned at Not on file Legal Sex Male 5:12 AM RESIDENTIAL ROOFER Gender Identity Male 01/17/2019 10:31 AM CDT Sexual Orientation Straight 07/02/2021 7: 47 PM RESIDENTIAL ROOFER documented as of this encounter Plan of Treatment Not on file documented as of this encounter Visit Diagnoses Not on filedocumented in this encounter Additional Health Concerns Infection Onset Date Last Indicated Resolved Time COVID: Suspected 03/25/2022 03/25/2022 03/25/2022 3:06 PM CDT COVID: Suspected 03/23/2023 03/23/2023 03/23/2023 7:41 PM CDT documented as of this encounter Care Teams Coin Box Collector Relationship Specialty Start Date End Date Shashi Davis MD [address] [facility] [address] [facility] [address] [place] [address] PCP - General Internal Medicine 04/03/18 05/06/24 Araseli Farris NP [address] [place] [address] [address], [place] [address] PCP - General Family Medicine 05/07/24 11/24/24 Araseli Farris NP [address] [place] [address] [address] [place] [address] PCP - General Family Medicine 11/25/24 Daniel Saunders MD Referring Physician Nephrology 04/03/18 Anastasia Savage, RN [address] [address] Instructional Systems Specialist Instructional Systems Specialist 06/28/20 Daisy Carter, RN 45[address] [facility] [address] [place] [address] Secondary Kidney Coordinator Transplant 06/30/20 [place] Dawson PA [address] [place] [address] [address], [place] [address] Physician Communications Department Chairperson Orthopedic Surgery 02/28/22 Miriam Hernandez NP [facility] [address] [facility] [address] [place] [address] Nurse Practitioner Gastroenterology 03/10/25 documented as of this encounter
--- OUTSIDE RECORDS SUMMARY | 2025-04-30 00:54 | XMS_ITS | Clinical Summary ---
Author Organization [facility] Address [address] [place] [address] Phone Care Team Providers Care Seed Cleaning Machine Operator Name Role Phone Shashi Davis DO Primary Care Provider [phone] Allergies No known active allergies Medications pravastatin (PRAVACHOL) 40 MG tablet 1 tab/cap qday 12/25/2011 Active omega-3 (FISH OIL) 1000 MG capsule 1 tab/cap tid 08/20/2012 Active lisinopril (PRINIVIL,ZESTRI L) 40 MG tablet 1 tab/cap qday 12/25/2011 Active oseltamivir (TAMIFLU) 30 MG capsule 1 tab/cap qday 0 07/12/2016 Active allopurinol (ZYLOPRIM) 300 MG tablet 1 tab/cap qday 0 08/20/2012 Active valsartan (DIOVAN) 320 MG tablet 1 tab/cap qday 12/25/2011 Active metoprolol succinate XL (TOPROL-XL) 100 MG 24 hr tablet 1 tab/cap qday 12/25/2011 Active Active Problems Problem Noted Date Diagnosed Date Chronic kidney disease, stage 4 (severe) 019 Other hyperlipidemia 09/26/2015 Overview (08/30/2018): Converted unresolved ICD9, potential mismatch. 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 Essential (primary) hypertension 12/04/2011 Immunizations Immunization Administration Dates Next Due Influenza TIV (IM) 06/23/2014 Family History Medical History Relation Comments Kidney disease Neg Hx Kidney stone Neg Hx Social History Tobacco Use Types Packs/Day Years Used Date Smoking Tobacco: Never Smokeless Tobacco: Never Alcohol Use Standard Drinks/Week Comments Yes 0 (1 standard drink = 0.6 oz pur e alcohol) Sex and Gender Information Value Date Recorded Sex Assigned at Not on file Legal Sex Male 7:30 AM MST Gender Identity Not on file Sexual Orientation Not on file Last Filed Vital Signs Vital Sign Reading Time Taken Comments Blood Pressure 142/78 07/28/2018 12:01 AM ASP NET DEVELOPER Pulse - - Temperature 36.5 C (97.7 F) 07/28/2018 12:01 AM ASP NET DEVELOPER Respiratory Rate - - Oxygen Saturation - - Inhaled Oxygen Concentration - - Weight 112 kg (246 lb) 07/28/2018 12:01 AM ASP NET DEVELOPER Height 165.1 cm (5' 5) 07/28/2018 12:01 AM ASP NET DEVELOPER Body Mass Index 40.94 07/28/2018 12:01 AM ASP NET DEVELOPER Plan of Treatment Health Maintenance Due Date Last Done Comments COVID-19 Vaccine (5 - 2024-2 6 season) 2025 10/28/2021, 10/17/2021, 08/15/2020, Additional history exists Influenza Vaccine (#1) 2025 , 03/07/2022, 02/25/2021, Additional history exists Care Teams Seed Cleaning Machine Operator Relationship Specialty Start Date End Date Shashi Davis [address] [address] PCP - General Internal Medicine 12/09/18
--- OUTSIDE RECORDS SUMMARY | 2025-04-30 00:54 | XMS_ITS | Encounter Summary ---
Author Organization [facility] Healthcare Address [address] [place] [address] Care Team Providers Care Prototype Model Maker Name Role Phone Daniel Saunders MD Unavailable [phone] Shashi Daivs MD Primary Care Provider + [phone] Anastasia Savage RN Unavailable [phone] Daisy Carter RN Unavailable [phone] [place] Dawson Unavailable [phone] Araseli Farris NP Primary Care Provider [phone] Araseli Farris NP Primary Care Provider [phone] Miriam Hernandez NP Unavailable [phone] Encounter Details Date Type Department Care Team (Late st Contact Info) Description 10/31/2021 Telephone [facility] Primary Care Medicine Clinic [address] [facility] Outpatient Health [address] [place] [address] Buddy Rodriguez MD 4901 [facility] [address] [place] [address] Social History Tobacco Use Types [...] on file Legal Sex Male 5:12 AM HEAD MACHINE FEEDER Gender Identity Male 01/17/2019 10:31 AM CDT Sexual Orientation Straight 07/02/2021 7: 47 PM HEAD MACHINE FEEDER documented as of this encounter Plan of Treatment Not on file documented as of this encounter Visit Diagnoses Not on filedocumented in this encounter Additional Health Concerns Infection Onset Date Last Indicated Resolved Time COVID: Suspected 03/25/2022 03/25/2022 03/25/2022 3:06 PM CDT COVID: Suspected 03/23/2023 03/23/2023 03/23/2023 7:41 PM CDT documented as of this encounter Care Teams Prototype Model Maker Relationship Specialty Start Date End Date Shashi Davis MD 6812 [facility] 162 [facility] [address] [place] [address] PCP - General Internal Medicine 04/03/18 05/06/24 Araseli Farris NP [address] [place] [address] [address], [place] [address] PCP - General Family Medicine 05/07/24 11/24/24 Araseli Farris NP [address] [place] [address] [address] [place] [address] PCP - General Family Medicine 11/25/24 Daniel Saunders MD Referring Physician Nephrology 04/03/18 Anastasia Savage, RN [address] [address] Television Announcer Television Announcer 06/28/20 Daisy Carter, RN 4590 [facility] [address] [place] [address] Secondary Kidney Coordinator Transplant 06/30/20 [place] PA [address] [place] [address] [address], [place] [address] Physician Buck Presser Orthopedic Surgery 02/28/22 Miriam Hernandez NP [facility] [address] [facility] [address] [place] [address] Nurse Practitioner Gastroenterology 03/10/25 documented as of this encounter
--- OUTSIDE RECORDS SUMMARY | 2025-04-30 00:54 | XMS_ITS | Clinical Summary ---
Author Organization [facility] Address [address] [place] [address] Care Team Providers Care Change Management Analyst Name Role Phone Unavailable Primary Care Provider Unavailabl e Social History Tobacco Use Types Packs/Day Years Used Date Smoking Tobacco: Never Assessed Sex and Gender Information Value Date Recorded Sex Assigned at Not on file Legal Sex Male 9:00 AM INSPECTOR HEATING AND REFRIGERATION Gender Identity Not on file Sexual Orientation Not on file Plan of Treatment Health Maintenance Due Date Last Done Comments Hepatitis C Virus (HCV) Screening 1971 TdaP Immunization 1971 Hepatitis B Immunization (1 of 3 - 19+ 3-dose series) 1990 Cologuard 01/25/2016 Colonoscopy 01/25/2016 Colorectal Cancer Screening 01/25/2016 Immunochemical Fecal Occult Blood 01/25/2016 Pneumococcal Immunization (5 0+ years) (2 of 2 - PCV) 2021 01/02/2019 Zoster Immunization (1 of 2) 2021 Influenza Immunization (#1) 02/15/202502/15, 03/24/2017, 04/06/2013 SARS-COV-2 Immunization (2024- season) 2025 Respiratory Syncytial Virus (RSV) Immunization (Adult) (1 - 1-dose 75+ series) 2046 Pneumococcal Immunization Combined Discontinued 01/02/2019 Human Papillomavirus (HPV) Immunization Aged Out No longer eligible based on patient's age to complete this topic Meningococcal Immunization (ACWY) Aged Out No longer eligible based on patient's age to complete this topic Rotavirus Immunization Aged Out No lo nger eligible based on patient's age to complete this topic
--- OUTSIDE RECORDS SUMMARY | 2025-04-30 00:54 | XMS_ITS ---
Author Organization [facility] Address [address] [place] [address] Care Team Providers Care Bell Captain Name Role Phone Daniel Saunders MD Unavailable [phone] Anastasia Savage RN Unavailable [phone] Daisy Carter RN Unavailable [phone] [place] Unavailable [phone] Araseli Farris NP Primary Care Provider [phone] Miriam Hernandez NP Unavailable [phone] Transplant Episode Kidney Recipient [facility] ([place], [place]) - [facility] Organ Received: Left Kidney Transplanted on 01/13/2019 Marked as Active Follow-up on 01/13/2019 Reason: Transplanted at [facility] Kidney CoordinatorAnastasia Savage RN Fax: N/A Email: N/A [place] Organ Diagnosis Organ Primary Contributory Kidney IgA Nephropathy Infection History Noted Survival Infection Treatment Organism Resolved 06/21/2021 2 years 5 months COVID-19 Donor Information Organ ABO Source Meets Risk Criteria HLA Match Mismatches Cross Match Left Kidney Transplanted O Positive Live A: B: DR: Left Kidney Donor Serology Results Anti-CMV CMV IgG: Positive EBV IgG EBV VCA IgG: Positive Anti-HBcAb HBC Total: Nonreactive HBsAg HBsAg: Nonreactive HBV DNA No results on file Anti-HCV HCV Ab: Nonreactive Anti-HIV I/II HIV Ag/Ab Combo Assay: Nonreactive Anti-HTLV I/II No results on file RPR/VDRL RPR: Non-Reactive EBV IgM No results on file HBsAb HBsAb: Nonreactiv e EBNA No results on file SARS CoV-2 No results on file Care Team Name Role Phone Fax Email Anastasia Savage RN Kidney Coordinator [phone] N/ A N/A Anastasia Savage RN Sales Operations Lead [phone] N/A N/A Tatiana Wick Secondary Cardiology Clinical Consultant N/A N/A N/A Daisy Carter RN Secondary Coordinator Secondary Kidney Coordinator [phone] N/A N/A Radha Soto Primary Cardiology Clinical Consultant N/A N/A N/A Daniel Saunders MD Referring Physician [phone] N/A Zhanna Pearson Window Covering Sales Consultant [phone] N/A N/A Events Post-Transplant Pre-Transplant Admitted: 01/13/2019 Referred: 03/25/2018 Transplanted: 01/13/2019 Evaluation began: 8 Discharged: 01/17/2019 Committee: 07/21/2018 Center waitlisted: 9
--- OUTSIDE RECORDS SUMMARY | 2025-04-30 00:54 | XMS_ITS | Encounter Summary ---
Author Organization [facility] Address [address] [facility] [place] [address] Care Team Providers Care Objects Conservator Name Role Phone Shashi Davis DO Primary Care Provider [phone] Encounter Details Date Type Department Care Team (Late st Contact Info) Description 09/12/2020 Lab Requisition [facility] [address] [facility], [place] [address] Zhanna Gilliland MD [address] [facility] 3 DEPT [place] [address] Social History Tobacco Use Types Packs/Day Years Used Date Smoking Tobacco: Never Smokeless Tobacco: Never Sex and Gender Information Value Date Recorded Sex Assigned at Not on file Legal Sex Male 10:06 AM CDT Gender Identity Not on file Sexual Orientation Not on file documented as of this encounter Plan of Treatment Not on file documented as of this encounter Procedures Procedure Name Priority Date/Time Associated Diagnosis Comments DERMATOPATHOLOGY Routine 09/08/2020 12:0 0 AM CDT documented in this encounter Results * DERMATOPATHOLOGY (09/08/2020 12:00 AM CDT) Case Report Dermatopathology Report Case: [id number] Authorizing Provider: Zhanna Gilliland MD Collected: 09/08/2020 12:00 AM Ordering Location: [facility] Received: 09/12/2020 11:52 AM Pathologist: Jose Alejandro Maier MD Specimens: A) - Skin, right superior forehead B) - Skin, left cheek 1:30 PM CDT DERMATOPATHOLOGY LABORATORY Final Diagnosis Specimen A. SKIN, right superior forehead: BENIGN VERRUCOUS KERATOSIS (L82.1) Specimen B. SKIN, left cheek: HYPERPLASTIC (HYPERTROPHIC) ACTINIC KERATOSIS (L57.0) 1:30 PM CDT DERMATOPATHOLOGY LABORATORY at 1330 CDT Clinical History A-B: R/O BCC, irritated. 1:30 PM CDT DERMATOPATHOLOGY LABORATORY Gross Description Specimen A: Received is one formalin filled container labeled with the patient's name and designated right superior forehead. The specimen consists of a shave biopsy measuring [id number]. Jar 0. Specimen B: Received is one formalin filled container labeled with the patient's name and designated left cheek. The specimen consists of a shave biopsy measuring [id number]. Jar 0. 1:30 PM CDT DERMATOPATHOLOGY LABORATORY Microscopic Description Specimen A. SKIN, right superior forehead: Sections show hyperkeratosis, papillomatosis, hypergranulosis, and acanthosis. These histological findings can be seen in a verruca vulgaris or a seborrheic keratosis. Specimen B. SKIN, left cheek: There is hyperkeratosis alternating with parakeratosis. There is epidermal hyperplasia with disorderly maturation of keratinocytes with nuclear pleomorphism confined to the lower half of the epidermis. 1:30 PM CDT DERMATOPATHOLOGY LABORATORY Disclaimer An external and internal positive and negative controls are appropriate for the histochemical, immunohistochemical and immunofluorescence stain(s) in this case (if any), except where stated explicitly. The performance characteristics of the stain(s) cited in this report were developed and its performance characteristic determined by the Dermatopathology Laboratory at [facility], directed by Dr. Adrian Maier. These tests need not be, and therefore are not, approved by the [place] Food and Drug Administration. The tests are used for clinical purposes. Billing Codes Specimen Charges Stain Charges 83129 13762 1 1 1:30 PM CDT DERMATOPATHOLOGY LABORATORY Embedded Images 1:30 PM CDT DERMATOPATHOLOGY LABORATORY Pathology/Cytology TISSUE SPECIMEN FROM SKIN / Unknown 09/08/2020 09/12/2020 11:52 AM CDT Miscellaneous samples (specimen) TISSUE SPECIMEN FROM SKIN / Unknown 09/08/2020 09/12/2020 11:52 AM CDT Zhanna Gilliland MD LAB - PATHOLOGY/CYTOLOGY OR DERABLES Final Result DERMATOPATHOLOGY LABORATORY [facility] - Department of Dermatology [facility] Specialized Medicine [address] [place] [address], [address] [phone] documented in this encounter Visit Diagnoses Not on filedocumented in this encounter Care Teams Objects Conservator Relationship Specialty Start Date End Date Shashi Davis DO [address] [facility] [address] [place] [address] PCP - General 04/26/22 documented as of this encounter
[2025-04-30 11:26] VITALS: BP 144/89; PULSE 61; RESP 20; TEMP 36.1; O2SAT 100; BMI 32.2
--- NOTE | 2025-04-30 11:28 | WPDANESEPPF ---
Anes - Initial Pre Proc Eval Procedure: Operation Date: 04/30/25 13:30 Proposed Procedures p EGD & Diagnostic Colonoscopy - Ryan Caceres MD Date/Time: 04/30/25 11:28 Surgeon: Ryan Caceres MD Pre Op Diagnosis: Iron deficiency anemia, unspecified Patient Data Age: 55 Gender: M Height: 1.78 m Weight: 101.8 kg Last Vital Signs Temp 36.1 C L 04/30/25 11:26 Pulse 61 04/30/25 11:26 Resp 20 04/30/25 11:26 BP 144/89 H 04/30/25 11:26 Pulse Ox 100 04/30/25 11:26 O2 Del Method Room Air 04/30/25 11:26 Allergies Allergy/AdvReac Type Severity Reaction Status Date / Time amlodipine Allergy Intermediate legs Verified 04/30/25 11:24 swelled azithromycin Allergy Intermediate Hives Verified 04/30/25 11:24 Home Medications ?Medication ?Instructions ?Recorded ?Confirmed ?Type aspirin 81 mg tablet,delayed 81 mg PO DAILY 07/17/19 04/30/25 History release (Adult Low Dose Aspirin) atorvastatin 20 mg tablet 20 mg PO DAILY 07/17/19 04/30/25 History cholecalciferol (vitamin D3) 50 50 mcg PO DAILY 07/17/19 04/30/25 History mcg (2,000 unit) capsule mycophenolate sodium 360 mg 360 mg PO BID 07/17/19 04/30/25 History tablet,delayed release (Myfortic) prednisone 5 mg tablet 5 mg PO DAILY 07/17/19 04/30/25 History metformin 500 mg tablet 500 mg PO BID 12/04/21 04/30/25 History lisinopril 5 mg tablet 5 mg PO DAILY 02/05/22 04/30/25 History carvedilol 12.5 mg tablet 6.25 mg (1/2 x 12.5 mg) PO Q12H 06/22/22 04/30/25 Rx #180 tabs sildenafil 100 mg tablet 100 mg PO DAILY PRN sexual 05/31/23 04/19/25 Rx activity #24 tabs tacrolimus 1 mg tablet,extended 2.5 mg PO DAILY 03/10/25 04/30/25 History release 24 hr (Envarsus XR) Patient hx anesthesia problems: none Family hx anesthesia problems: none Results Review: All pre-operative results and documents have been reviewed as part of the pre-operative evaluation. [facility] Past Medical History Medical History Colon cancer screening Hyperlipidemia Obesity (BMI 30.0-34.9) Essential (primary) hypertension Gout, unspecified Hyperglycemia Erectile dysfunction Surgical History Surgical History S/P kidney transplant Family History Family History Sibling Patient's sister is in good health Patient's brother is in good health Mother Patient's mother is Father Patient's father is Family history of heart disease in male family member before age 55 Social History Social History (Updated 04/30/25 @ 11:28 by Hay Wise MD) Years smoked: 30 Smoking status: Former smoker Tobacco type: cigarettes Second hand tobacco smoke exposure: No Alcohol intake: current Drinks per week: 4 Alcohol use details: socially Substance use: never Substance use type: does not use Lack of Transportation: No Lack of Food: Never True Current Housing: I Have Housing Concerned About Future Housing: No Difficulty Paying Gas/Electric Bills: No Difficulty Paying for Meds: No Currently Unemployed: No Education: Bachelor's Degree Difficulty w/ Childcare or Family Care: No Living arrangements: with family Spiritual care concerns: No Anes - Eval Final PreProcedure Day of Procedure 04/30/25 11:28 Patient weight: obese Heart: regular rate and rhythm Lungs: clear to auscultation Airway: Mallampati scale class II Neurological: alert and oriented Last oral intake: >/= 8 hours ASA classification: III Emergent: no Anesthetic plan: proceed Anesthesia type and monitoring: general GIVS and standard monitoring Results Review: All pre-operative results and documents have been reviewed as part of the pre-operative evaluation. Informed Consent: The patient's anesthetic plan and its attendant risks and benefits were discussed with the patient/family/POA. Questions were solicited and answers provided to the satisfaction of the patient/family/POA.
[2025-04-30] MEDS: LACTATED RINGERS 1,000 ML 150 ML IV CONT (11:35)
--- NOTE | 2025-04-30 12:31 | PM.HPGS ---
History of Present Illness History of Present Illness Consent: Risks, benefits, and alternatives have been discussed and questions answered. Patient agrees to proceed with procedure. Chief complaint: Iron deficiency anemia, unspecified Narrative: Ravindra Diego is a 55 year old male here for egd/colonoscopy, he has past medical surgical history of chronic anemia, chronic kidney disease stage 5 secondary to biopsy-proven IgA nephropathy, status post-kidney transplant on 01/13/2019 with recurrent anemia, no overt gib. Last colonoscopy 2021 with polyp. Review of Systems Review of Systems: All systems reviewed & are unremarkable except as noted in HPI and below PMFSH Past Medical History Medical History Colon cancer screening Hyperlipidemia Obesity (BMI 30.0-34.9) Essential (primary) hypertension Gout, unspecified Hyperglycemia Erectile dysfunction Surgical History Surgical History S/P kidney transplant Family History Family History Sibling Patient's sister is in good health Patient's brother is in good health Mother Patient's mother is Father Patient's father is Family history of heart disease in male family member before age 55 Social History Social History (Updated 04/30/25 @ 11:28 by Hay Wise MD) Years smoked: 30 Smoking status: Former smoker Tobacco type: cigarettes Second hand tobacco smoke exposure: No Alcohol intake: current Drinks per week: 4 Alcohol use details: socially Substance use: never Substance use type: does not use Lack of Transportation: No Lack of Food: Never True Current Housing: I Have Housing Concerned About Future Housing: No Difficulty Paying Gas/Electric Bills: No Difficulty Paying for Meds: No Currently Unemployed: No Education: Bachelor's Degree Difficulty w/ Childcare or Family Care: No Living arrangements: with family Spiritual care concerns: No Meds Home Medications and Allergies Home Medications ?Medication ?Instructions ?Recorded ?Confirmed ?Type aspirin 81 mg tablet,delayed 81 mg PO DAILY 07/17/19 04/30/25 History release (Adult Low Dose Aspirin) atorvastatin 20 mg tablet 20 mg PO DAILY 07/17/19 04/30/25 History cholecalciferol (vitamin D3) 50 50 mcg PO DAILY 07/17/19 04/30/25 History mcg (2,000 unit) capsule mycophenolate sodium 360 mg 360 mg PO BID 07/17/19 04/30/25 History tablet,delayed release (Myfortic) prednisone 5 mg tablet 5 mg PO DAILY 07/17/19 04/30/25 History metformin 500 mg tablet 500 mg PO BID 12/04/21 04/30/25 History lisinopril 5 mg tablet 5 mg PO DAILY 02/05/22 04/30/25 History carvedilol 12.5 mg tablet 6.25 mg (1/2 x 12.5 mg) PO Q12H 06/22/22 04/30/25 Rx #180 tabs sildenafil 100 mg tablet 100 mg PO DAILY PRN sexual 05/31/23 04/19/25 Rx activity #24 tabs tacrolimus 1 mg tablet,extended 2.5 mg PO DAILY 03/10/25 04/30/25 History release 24 hr (Envarsus XR) Allergies Allergy/AdvReac Type Severity Reaction Status Date / Time amlodipine Allergy Intermediate legs Verified 04/30/25 11:24 swelled azithromycin Allergy Intermediate Hives Verified 04/30/25 11:24 Vital Signs Vital Signs - 24 hr 04/30/25 11:26 Temperature 97 F L Pulse Rate 61 Respiratory Rate 20 Blood Pressure 144/89 H Pulse Oximetry 100 Oxygen Delivery Room Air Exam Const: General: comfortable and no acute distress HENMT: Face/Nose/Sinus: Normal nares present Eyes: General: appearance normal, both eyes and all related structures Resp: Auscultation: clear to auscultation bilaterally Cardio: Rate: regular rate Rhythm: regular rhythm GI: Inspection: non-distended GI Palp: Yes Soft to palpation Skin: General skin exam: normal color Extrem: General: normal to inspection Psych: Mental Status: mental status grossly normal Assessment and Plan Assessment and plan (1) History of colon polyps: Code(s): Z86.0100 - Personal history of colon polyps, unspecified Status: Acute (2) Iron deficiency anemia: Code(s): D50.9 - Iron deficiency anemia, unspecified Status: Acute Assessment and Plan: egd and colonoscopy to assess if gi source of anemia (3) S/P kidney transplant: Code(s): Z94.0 - Kidney transplant status Status: Acute
--- NOTE | 2025-04-30 12:36 | S_PTH ---
PATIENT: Ravindra Diego LOC: [facility]#:[id number] AGE/SX: 55/M ROOM: RE04/30/[address]: Ryan Caceres MD : 1970 BED: DIS: 04/30/2025 SPEC #: [id number] RECD: 04/30/25 13:24 STATUS: TARAN MOORE #: [id number] TIKI: 04/30/25 12:[address]: Ryan Caceres DEPT: [facility] Surgical RECD BY: Marcie Mckeon ENTERED: 04/30/25 13:25 SP TYPE: Surgical OTHR DR: Araseli Farris, [employer]MENT[employer]ING [employer]PER[employer]OR Tissues: A - Small Bowel Bx B - Gastric Biopsy C - Colon Polypectomy Procedures: Hematoxylin and Eosin Stain Gross and Microscopic Level 4 H.Pylori
--- NOTE | 2025-04-30 12:39 | SUR.OPER ---
EGD ended at 1238, colon began at 1243.
[2025-04-30 12:51] VITALS: BP 111/53; PULSE 60; RESP 20; O2SAT 100
[2025-04-30 13:01] VITALS: BP 106/63; PULSE 54; RESP 22; O2SAT 100
[2025-04-30 13:11] VITALS: BP 116/69; PULSE 55; RESP 20; O2SAT 100
== END 2025-04-30 13:19 | disposition home or self-care (01) ==
PROVIDERS: PCP Nurse Practitioner Family; Referring Provider Nurse Practitioner; Visit Provider Internal Medicine Gastroenterology
PROC: 0DJ08ZZ Inspection of Upper Intestinal Tract, Via Natural or Artificial Opening Endoscopic (ICD-10-PCS; CPT 45378; principal; 2025-04-30 13:30)
DX: D50.9 Iron deficiency anemia, unspecified (principal); D12.3 Benign neoplasm of transverse colon; K57.30 Diverticulosis of large intestine without perforation or abscess without bleeding; K64.8 Other hemorrhoids; K29.50 Unspecified chronic gastritis without bleeding; K31.7 Polyp of stomach and duodenum; Z94.0 Kidney transplant status; Z87.891 Personal history of nicotine dependence; E66.9 Obesity, unspecified; Z68.32 Body mass index [BMI] 32.0-32.9, adult; Z79.84 Long term (current) use of oral hypoglycemic drugs
CPT/HCPCS: 45380; 43239; 82948; 88305; 88342; J2704; J7120